=== PATIENT | female | born 1980 | race Two or more races ===

== ENCOUNTER 2017-01-02 01:28 | Emergency (ER) | payer BC ==
[~2017-01-02] VITALS: Ht 160 cm; Wt 72.6 kg
[2017-01-02] MEDS ORDERED: predniSONE 20 MG TABLET PO ONE (03:00)
[2017-01-02] MEDS ORDERED: HYDROCODONE/APAP 5-325MG TABLET PO ONE (03:00)
--- NOTE | 2017-01-02 03:04 | NUR ---
Patient discharged to home in stable conditon. Written and verbal after care instructions given. Patient verbalizes understanding of instructions.
[2017-01-02] MEDS ORDERED: HYDROCODONE/APAP 5-325MG TABLET ONE (03:10)
[2017-01-02] MEDS ORDERED: predniSONE 50 MG TABLET ONE (03:10)
[2017-01-02] MEDS ORDERED: predniSONE 10 MG TABLET ONE (03:11)
== END 2017-01-02 03:05 | disposition home or self-care (01) ==
LOC: ER 01:32
DX: M65.9 Synovitis and tenosynovitis, unspecified (principal); M79.641 Pain in right hand; E78.5 Hyperlipidemia, unspecified; Z90.49 Acquired absence of other specified parts of digestive tract
CPT/HCPCS: 73130; A4663; J7512